=== PATIENT | female | born 1985 | race Two or more races ===

== ENCOUNTER 2025-03-21 17:03 | Emergency (ER) | payer MEDICAID, SELFPAY ==
[2025-03-21 17:15] VITALS: BP 114/75; PULSE 63; RESP 22; TEMP 36.5; O2SAT 99; BMI 29.6
--- NOTE | 2025-03-21 17:31 | XR_ITS ---
Examination: Abdomen sonogram, Limited Date and time of exam: March 21, 2025, 1828 hours INDICATIONS: Epigastric pain beginning 2 days ago Technique: Real-time lord scale transabdominal sonographic images of the upper abdomen obtained. Findings: Gallstones Gallbladder wall 0.4 cm no definite edema Common bile duct 0.2 cm Pancreatic head 2.6 cm Liver 14.7 cm no liver lesions Normal hepatopetal portal venous flow Patent IVC IMPRESSION: Cholelithiasis Consider HIDA scan or MRCP follow-up to exclude cholecystitis
--- NOTE | 2025-03-21 17:32 | PD.EDRME ---
Rapid Medical Screening Exam [facility] Arrival date/time: 03/21/25 17:03 40-year-old female with no known medical history presents to the emergency room with a chief complaint of right upper quadrant abdominal tenderness x 1 day. Patient has a history of gallstones. I have greeted and performed a focused initial assessment of this patient. A comprehensive ED assessment and evaluation of the patient, analysis of all test results, and completion of the medical decision making process will be conducted by additional ED providers. Chief Complaint: Abdominal Pain Vital signs: Vital Signs Temperature 97.7 F 03/21/25 17:15 Pulse Rate 63 03/21/25 17:15 Respiratory Rate 22 H 03/21/25 17:15 Blood Pressure 114/75 03/21/25 17:15 Pulse Oximetry (%) 99 03/21/25 17:15 Oxygen Delivery Method Room Air 03/21/25 17:15 Vital signs reviewed by provider: Yes Exam: Right upper quadrant abdominal tenderness with palpation. Positive Matute sign Clear bilateral lung sounds Clinical Impression: Cholelithiasis versus cholecystitis
[2025-03-21 18:02] LABS: Basophils # (Auto) 0.1 Thou/mm3 (0.0-0.2); Basophils % (Auto) 1 % (0-2.5); Eosinophils # (Auto) 0.2 Thou/mm3 (0.0-0.5); Eosinophils % (Auto) 2 % (0-10); Hematocrit 39.0 % (36.0-46.0); Hemoglobin 12.8 g/dL (12.0-16.0); Immature Granulocytes Auto 0.06 Thou/mm3 (0.00-0.00); Lymphocytes # (Auto) 2.5 Thou/mm3 (1.0-4.8); Lymphocytes % (Auto) 26 % (10-50); Mean Corpuscular HGB Conc 32.8 g/dl (31.0-37.0); Mean Corpuscular Hemoglobin 29.9 pg (25.0-35.0); Mean Corpuscular Volume 91 fL (80-100); Monocytes # (Auto) 0.7 Thou/mm3 (0.0-0.8); Monocytes % (Auto) 7 % (0-12); Neutrophils # (Auto) 6.0 Thou/mm3 (1.8-7.7); Neutrophils % (Auto) 64 % (37-80); Nucleated Red Blood Cell # 0.00 Thou/mm3 (0.00-0.00); Nucleated Red Blood Cell % 0 /100 WBC (0); Platelet Count 187 Thou/mm3 (140-440); RDW Standard Deviation 41.1 fL (36.4-46.3); Red Blood Count 4.28 Miln/mm3 (4.00-5.20); White Blood Count 9.4 Thou/mm3 (3.6-11.0)
[2025-03-21] MEDS: ONDANSETRON ODT 4 MG TABRAP PO (18:06)
[2025-03-21] MEDS: HYDROcodone/APAP 5/325 TABLET 1 TAB PO (18:06)
[2025-03-21 18:20] LABS: Alanine Aminotransferase 47 U/L (10-49); Albumin, Serum 4.1 gm/dL (3.5-5.0); Albumin/Globulin Ratio 1.4 (1.2-2.2); Alkaline Phosphatase 83 U/L (46-116); Anion Gap 8 (7-16); Aspartate Amino Transferase 69 U/L (0-34); BUN/Creatinine Ratio 14 Ratio (12-20); Bilirubin,Total 0.4 mg/dL (0.3-1.2); Blood Urea Nitrogen 10 mg/dL (9-23); Calcium 8.9 mg/dL (8.3-10.6); Calcium (Corrected) 8.9 mg/dL (8.5-10.1); Carbon Dioxide 27.5 mMol/L (20.0-31.0); Chloride 106 mMol/L (98-107); Creatinine (Component) 0.7 mg/dL (0.6-1.3); Estimated Creatinine Clearance 99.3 mL/min (>60); Globulin 3.0 gm/dL (2.3-3.5); Glucose 144 mg/dL (74-106); Lipase 65 U/L (12-53); Osmolality,Calculated 283 (275-295); Potassium 4.2 mMol/L (3.4-5.1); Sodium 141 mMol/L (136-145); Total Protein 7.1 gm/dL (5.7-8.2); eGFR > 60 See Note
[2025-03-21 18:25] LABS: Collection Type, Urine Clean Catch
[2025-03-21 18:32] LABS: Bilirubin,Urine Negative (Negative); Blood,Urine Negative (Negative); Clarity,Urine Clear (Clear/Hazy); Color,Urine Lt-Yellow (Lt Yel-Yel); Glucose, Urine Negative (Negative); Ketones,Urine Negative (Negative); Leukocyte Esterase,Urine Negative (Negative); Nitrite,Urine Negative (Negative); PH,Urine 7.5 (5.0-7.0); Protein,Urine Negative (Neg - Trace); RBC,Urine 1 /hpf (0-3); Specific Gravity,Urine 1.022 (1.001-1.035); Squamous Epithelial Cell,Urine 1 /hpf (0-5); Urobilinogen,Urine Negative mg/dL (0.0-1.0); WBC,Urine < 1 /hpf (0-5)
[2025-03-21 18:44] LABS: HCG Qualitative,Urine Negative
[2025-03-21 19:39] VITALS: BP 98/65; PULSE 52; RESP 16; TEMP 36.6; O2SAT 97
--- NOTE | 2025-03-21 19:51 | PD.EDABDPN ---
ED Abdominal Pain RME/HPI General Chief Complaint: Abdominal Pain Stated complaint: GALLBLADDER STONES Time seen by provider: 03/21/25 18:22 Arrival date/time: 03/21/25 17:03 40-year-old female patient with no past medical history except for gallstone, came in for evaluation regarding biliary colic. She been having biliary colic earlier this morning patient described the pain as crampy, severity moderate no fever no vomiting no other complaints noted. Patient was eating a lot last night. For Thanksgiving. Scheduled for appointment with general surgeon in few weeks. No fever noted RME / HPI RME / HPI narrative: 03/21/25 17:03 40-year-old female with no known medical history presents to the emergency room with a chief complaint of right upper quadrant abdominal tenderness x 1 day. Patient has a history of gallstones. I have greeted and performed a focused initial assessment of this patient. A comprehensive ED assessment and evaluation of the patient, analysis of all test results, and completion of the medical decision making process will be conducted by additional ED providers. Exam: Right upper quadrant abdominal tenderness with palpation. Positive Matute sign Clear bilateral lung sounds Impression: Cholelithiasis versus cholecystitis Related Data Previous Rx's ?Medication ?Instructions ?Recorded ibuprofen 800 mg tablet 800 mg PO TID PRN pain #30 tabs 03/02/18 Allergies Allergy/AdvReac Type Severity Reaction Status Date / Time No Known Allergies Allergy Verified 03/21/25 17:06 Review of Systems Review of Systems Narrative Review of Systems: Review of system reviewed and within normal limits except mentioned in HPI ED Exam Narrative Physical exam: VITAL SIGNS: Reviewed. GENERAL APPEARANCE: Alert and interactive, follows commands, no acute distress, HEAD AND FACE: Non-traumatic. ENT: PERRL, pink conjunctivitis, eyelid no trauma, Mucous membrane moist. NECK: Supple, nontender, no nuchal rigidity. CHEST: No tenderness, no crepitus, no paradoxical movement, no retractions. LUNGS: Clear, well ventilated, symmetric, no rales, no wheezing, no ronchi, no stridor, good breath sounds bilaterally. HEART: Regular rate, regular rhythm, no murmur, no gallops. ABDOMEN: Soft, positive bowel sounds, nondistended, no guarding, nontender, no rebound, no masses, RECTAL: Deferred. GENITAL: Deferred. NEUROLOGICAL: Gross motor function intact sensory function intact, Appropriate for age. MUSCULOSKELETAL: low back nontender, full range of motion. EXTREMITIES: Nontender, full range of motion. SKIN: Color pink, dry, no rash, no lacerations, no abrasions, no contusions. LYMPHATICS: Deferred. Course Quality Measures none Orders Category Date Time Status US gall bladder Stat Exams 03/21/25 17:31 Taken CBC Stat Lab 03/21/25 17:40 Completed CMP [Comprehensive Metabolic Panel] Stat Lab 03/21/25 17:40 Completed HCG Qualitative,Urine Stat Lab 03/21/25 18:01 Completed Lipase Stat Lab 03/21/25 17:40 Completed UA [Urinalysis] Stat Lab 03/21/25 18:01 Completed Urine Culture Stat Lab 03/21/25 18:01 Received HYDROcodone*/APAP 5/325 [[place] 5/325] Med 03/21/25 17:31 Discontinued 1 tab PO X1 ONE Ondansetron Odt [Zofran Odt] Med 03/21/25 17:31 Discontinued 4 mg PO X1 ONE Vital Signs Vital signs: Vital Signs Temperature 97.7 F 03/21/25 17:15 Pulse Rate 63 03/21/25 17:15 Respiratory Rate 22 H 03/21/25 17:15 Blood Pressure 114/75 03/21/25 17:15 Pulse Oximetry (%) 99 03/21/25 17:15 Oxygen Delivery Method Room Air 03/21/25 17:15 Abdominal Pain MDM MDM Narrative MDM Narrative:: 40-year-old female patient with no past medical history except for gallstone, came in for evaluation regarding biliary colic. She been having biliary colic earlier this morning patient described the pain as crampy, severity moderate no fever no vomiting no other complaints noted. Patient was eating a lot last night. For Thanksgiving. Scheduled for appointment with general surgeon in few weeks. No fever noted Laboratory workup did not show any sign of leukocytosis LFTs are normal. Ultrasound of gallbladder showed cholelithiasis with no sign of acute cholecystitis patient was given [place], with complete resolution of pain. Patient is stable for charged home advised her not to eat spicy food, greasy food, meat or fried foods. She is scheduled to see a surgeon in a few weeks. Patient data External records reviewed:: None Clinical information provided by:: none Social determinants that could affect healthcare access:: none Patient has the following chronic illnesses:: None How is presenting disease/condition affected by chronic disease/condition?: no chronic disease Evaluation data The following diagnostics were reviewed and interpreted by me:: lab results and radiology exam(s) Lab and/or radiology exams considered but not ordered:: None Interpretation Summary: See above Medications / Prescriptions Medications or Prescriptions considered but not ordered:: None Medication administrations:: Medication Administration History Discontinued Medications Hydrocodone Bitart/Acetaminophen (Hydrocodone/Apap 5/325 Tablet) 1 tab PO X1 ONE Stop: 03/21/25 17:32 Last Admin: 03/21/25 18:06 Dose: 1 tab Documented By: Ondansetron HCl (Ondansetron Odt 4 Mg Tabrap) 4 mg PO X1 ONE; Protocol Stop: 03/21/25 17:32 Last Admin: 03/21/25 18:06 Dose: 4 mg Documented By: Carla Yu Consultations Consultation(s) initiated? (list below): No Diagnosis Differential diagnosis abdominal pain: abdominal pain and constipation Most likely diagnosis given after review of the tests above:: Biliary colic, gallstone Admission Indicated Admission indicated?: not indicated Admission Request Was there a request for admission?: No Disposition Plan Disposition Plan: Discharge Discharge Attestation Discharge Attestation: The patient and all family members were given an opportunity to ask questions and understood the discharge instructions. Discharge instructions specifically effects, indications for sooner follow up or return to the emergency department, and the expected course of current diagnosis. Patient condition: Stable Discharge Plan Plan Patient Disposition: HOME (Self Care) Discharge Disposition comment: Stable Prescriptions/Referrals Prescriptions/Med Rec: No Action ibuprofen 800 mg tablet 800 mg PO TID PRN (Reason: pain) Qty: 30 0RF Referrals: No Primary/Family,Physician [Primary Care Provider] - In 1 week Problem List Clinical Impression: Biliary colic, Gallstone Patient/Caregiver Discharge Instructions Discharge Activity: activity as tolerated Education Materials: What Are Gallstones Additional Instructions: Thank you for the opportunity for serving you today. You are stable for discharged . You are advised to: Follow-up with your PCP in 1 to 2 days Return to ED for worsening of symptoms Increase oral fluids Take medication as prescribed last visit Follow-up with your scheduled appointment with a surgeon regarding your gallstone Please avoid eating fatty and greasy food., Avoid eating spicy food Print Language: Georgian Stand Alone Forms: Mindy Award Info., Patient Portal Info Letter PA/JOURNEYMAN PIPE FITTER Supervising Physician PA/JOURNEYMAN PIPE FITTER Supervising Physician: MD Cassandra
== END 2025-03-21 19:58 | disposition home or self-care (01) ==
PROVIDERS: Nurse Practitioner Family; Emergency Provider Emergency Medicine
DX: K80.70 Calculus of gallbladder and bile duct without cholecystitis without obstruction (principal)
CPT/HCPCS: 36415; 76705; 80053; 81001; 81025; 83690; 85025; 87086; 99283; Q0162; A9270

== ENCOUNTER 2025-04-19 22:20 | Inpatient (IN) | payer MEDICAID, SELFPAY ==
[2025-04-19 22:55] VITALS: BP 126/88; PULSE 63; RESP 16; TEMP 36.7; O2SAT 99
[2025-04-19 23:43] LABS: Basophils # (Auto) 0.1 Thou/mm3 (0.0-0.2); Basophils % (Auto) 1 % (0-2.5); Eosinophils # (Auto) 0.1 Thou/mm3 (0.0-0.5); Eosinophils % (Auto) 1 % (0-10); Hematocrit 40.7 % (36.0-46.0); Hemoglobin 13.5 g/dL (12.0-16.0); Immature Granulocytes Auto 0.12 Thou/mm3 (0.00-0.00); Lymphocytes # (Auto) 1.6 Thou/mm3 (1.0-4.8); Lymphocytes % (Auto) 14 % (10-50); Mean Corpuscular HGB Conc 33.2 g/dl (31.0-37.0); Mean Corpuscular Hemoglobin 29.6 pg (25.0-35.0); Mean Corpuscular Volume 89 fL (80-100); Monocytes # (Auto) 1.1 Thou/mm3 (0.0-0.8); Monocytes % (Auto) 9 % (0-12); Neutrophils # (Auto) 8.8 Thou/mm3 (1.8-7.7); Neutrophils % (Auto) 75 % (37-80); Nucleated Red Blood Cell # 0.00 Thou/mm3 (0.00-0.00); Nucleated Red Blood Cell % 0 /100 WBC (0); Platelet Count 217 Thou/mm3 (140-440); RDW Standard Deviation 41.1 fL (36.4-46.3); Red Blood Count 4.56 Miln/mm3 (4.00-5.20); White Blood Count 11.8 Thou/mm3 (3.6-11.0)
[2025-04-20] VITALS (8 sets, daily range): BP systolic 91–120; BP diastolic 62–82; PULSE 52–81; RESP 15–99; TEMP 36.5–36.9; O2SAT 96–100; BMI 34.9
--- NOTE | 2025-04-20 00:11 | XR_ITS ---
Examination: Abdomen sonogram, Limited Date and time of exam: April 20, 2025, 0021 hours INDICATIONS: Right upper abdominal pain with vomiting beginning 2 days ago. Technique: Real-time lord scale transabdominal sonographic images of the upper abdomen obtained. Findings: Small gallstone Gallbladder wall 0.3 cm no edema Common bile duct 0.4 cm Pancreatic head 2.6 cm Liver 13.7 cm no liver lesions Normal hepatopetal portal venous flow Patent IVC IMPRESSION: Cholelithiasis, negative for cholecystitis
[2025-04-20 00:14] LABS: Albumin, Serum 3.9 gm/dL (3.5-5.0); Albumin/Globulin Ratio 1.1 (1.2-2.2); Alkaline Phosphatase 120 U/L (46-116); Anion Gap 7 (7-16); Aspartate Amino Transferase 569 U/L (0-34); BUN/Creatinine Ratio 11 Ratio (12-20); Bilirubin,Total 2.1 mg/dL (0.3-1.2); Blood Urea Nitrogen 9 mg/dL (9-23); Calcium 9.0 mg/dL (8.3-10.6); Calcium (Corrected) 9.1 mg/dL (8.5-10.1); Carbon Dioxide 27.6 mMol/L (20.0-31.0); Chloride 104 mMol/L (98-107); Creatinine (Component) 0.8 mg/dL (0.6-1.3); Globulin 3.6 gm/dL (2.3-3.5); Glucose 102 mg/dL (74-106); Osmolality,Calculated 276 (275-295); Potassium 3.8 mMol/L (3.4-5.1); Sodium 139 mMol/L (136-145); Total Protein 7.5 gm/dL (5.7-8.2); eGFR > 60 See Note
[2025-04-20 00:18] LABS: Collection Type, Urine Clean Catch
[2025-04-20 00:27] LABS: Bilirubin,Urine Negative (Negative); Blood,Urine Negative (Negative); Calcium Oxalate Crystals,Urine 1+; Clarity,Urine Clear (Clear/Hazy); Color,Urine Yellow (Lt Yel-Yel); Glucose, Urine Negative (Negative); Ketones,Urine Negative (Negative); Leukocyte Esterase,Urine Negative (Negative); Nitrite,Urine Negative (Negative); PH,Urine 6.0 (5.0-7.0); Protein,Urine Negative (Neg - Trace); RBC,Urine 2 /hpf (0-3); Specific Gravity,Urine 1.011 (1.001-1.035); Squamous Epithelial Cell,Urine 1 /hpf (0-5); Urobilinogen,Urine Negative mg/dL (0.0-1.0); WBC,Urine 3 /hpf (0-5)
[2025-04-20 00:29] LABS: HCG Qualitative,Urine Negative
[2025-04-20 00:40] LABS: Alanine Aminotransferase 871 U/L (10-49)
[2025-04-20 00:54] LABS: Lipase > 3500 U/L (12-53)
--- NOTE | 2025-04-20 01:28 | PRELIM_ITS ---
Right upper quadrant abdominal ultrasound with Doppler and wave Doppler spectral analysis. April 20, 2025 0021 hours Clinical history: abdomen pain Technique: Grayscale and color flow images of the right upper quadrant are provided. Hepatic and portal veins were also imaged with color flow images. Comparison: None available at the time of this report. Findings: The liver is normal in echogenicity. No intrahepatic biliary ductal dilatation. Gallstones. No gallbladder wall thickening or pericholecystic fluid is demonstrated. The common bile duct is normal in caliber at 4.2 mm. The pancreas is unremarkable to the extent visualized. The imaged portions of the right kidney is within normal limits. The portal vein is patent with hepatopetal flow and normal wave Doppler spectral analysis. The IVC is patent with normal wave Doppler spectral analysis. The hepatic veins are patent. Impression: Gallstones without evidence of acute cholecystitis. If the clinical suspicion for acute cholecystitis is still high consider correlation with HIDA scan. Report Electronically Signed By: Igor Mcmahon 04/20/2025 1:27:51 AM [EST]
--- NOTE | 2025-04-20 01:53 | XR_ITS ---
Examination: CT abdomen with intravenous contrast CT pelvis with intravenous contrast 2-D coronal reconstructions 2-D sagittal reconstructions Date and time of exam: April 20, 2025, 0237 hours INDICATIONS: Onset abdominal pain beginning 2 days ago. CTDI: vol (mGy) 8.34 DLP: (mGycm) 457 Technique: Multiple axial sections of the abdomen and pelvis have been obtained. 64 slice high-resolution scanner used. 3 mm axial sections have been obtained, post intravenous injection 60 cc [id number] 2-D sagittal, coronal reconstructions obtained. Low dose protocols were performed. One or more of the following dose reduction techniques were used; automated exposure control, adjustment of the mA and/or KV according to patient size, use of iterative reconstruction technique. Findings: No visualized liver or splenic lesion Diffusely enlarged pancreas with surrounding edema Gallbladder wall thickening Moderate renal scarring No bowel obstruction Normal appendix No diverticulitis Intrauterine device satisfactory position 3.5 cm right ovarian cyst Osseous structures intact IMPRESSION: Acute pancreatitis Acute cholecystitis Recommend pelvic sonography to assess 3.5 cm right ovarian cyst
--- NOTE | 2025-04-20 03:49 | PD.EDRME ---
Rapid Medical Screening Exam RME Arrival date/time: 04/19/25 22:20 This is a case of 40-year-old female who came into the emergency room due to both upper abdominal pain with nausea vomiting history of cholelithiasis worsening of the symptoms this patient decided to sought consult here in the emergency room Chief Complaint: Abdominal Pain Time Seen by Provider: 04/19/25 23:22 Vital signs: Vital Signs Temperature 98.1 F 04/19/25 22:55 Pulse Rate 63 04/19/25 22:55 Respiratory Rate 16 04/19/25 22:55 Blood Pressure 126/88 H 04/19/25 22:55 Pulse Oximetry (%) 99 04/19/25 22:55 Oxygen Delivery Method Room Air 04/19/25 22:55 Exam: Moderate tenderness right upper quadrant no guarding no rebound no rigidity Clinical Impression: Abdominal pain
--- NOTE | 2025-04-20 04:11 | PRELIM_ITS ---
CT abdomen and pelvis with intravenous contrast (axial images with coronal and sagittal reconstructions) Clinical history: Abdominal pain Findings: The lung bases are clear. The liver, spleen, adrenal glands and kidneys are unremarkable. There is gallbladder wall thickening with mild adjacent fat stranding. Prominent fat stranding around the pancreas. No evidence of pancreatic necrosis. No peripancreatic fluid collection. The portal mesenteric and splenic veins are patent. Bowel caliber is normal. The appendix is normal, best seen on image 129. There is an intrauterine contraceptive device in normal position in the uterine fundus. A 3.5 cm right adnexal follicle. The urinary bladder is normal. The abdominal wall is unremarkable. No acute osseous process. No free intraperitoneal air or fluid. Impression: Acute pancreatitis. Gallbladder inflammation may be secondary to adjacent pancreatitis. Cannot exclude cholecystitis. Report Electronically Signed By: Timoteo Choe 04/20/2025 4:11:35 AM [EST]
--- NOTE | 2025-04-20 04:31 | PD.EDABDPN ---
ED Abdominal Pain RME/HPI General Chief Complaint: Abdominal Pain Stated complaint: ABD PAIN Time seen by provider: 04/19/25 23:22 Arrival date/time: 04/19/25 22:20 RME / HPI RME / HPI narrative: 04/19/25 22:20 This is a case of 40-year-old female who came into the emergency room due to both upper abdominal pain with nausea vomiting history of cholelithiasis worsening of the symptoms this patient decided to sought consult here in the emergency room DR. BOWER MAIN ED EVALUATION: Patient with previously diagnosed gallstones pending cholecystectomy now presenting with progressively worsening epigastric/RUQ abdominal pain with associated several bouts of nausea and vomiting, although no fever, but reports chills. No radiation to the back, denies diarrhea or dysuria. PMH: Cholelithiasis, No DM, ASthma, or HTN PSH: Unremarkable Allergies: NKDA Social: Nondrinker, Nonsmoker Exam: Moderate tenderness right upper quadrant no guarding no rebound no rigidity Impression: Abdominal pain Related Data Previous Rx's ?Medication ?Instructions ?Recorded ibuprofen 800 mg tablet 800 mg PO TID PRN pain #30 tabs 03/02/18 Allergies Allergy/AdvReac Type Severity Reaction Status Date / Time No Known Allergies Allergy Verified 04/19/25 22:20 Review of Systems Review of Systems Systems Reviewed: All systems reviewed, normal except as documented ED Exam Narrative Physical exam: GEN. APPEARANCE: The patient is alert awake oriented X-3 under mild distress c/o epigastric abdominal pain Patient has good eye contact. Patient is cooperative. VITALS: All vitals were reviewed and the pulse ox is 100%, which is normal according to my interpretation HEENT: Normocephalic, atraumatic and nontender. Pupils are equal and reactive. Oral mucosa is moist. NECK: Supple, nontender, no meningismus, no JVD. There is no thyromegaly and no lymphadenopathy. CHEST: Nontender on palpation no deformity and no crepitus. CARDIOVASCULAR: Heart regular rhythm, no murmur or gallop rub or extra beats. LUNGS: Clear to auscultation bilaterally with symmetrical chest rise. No laboring tachypnea or wheezing. No intercostal subcostal retraction. No rales and no rhonchi. ABDOMEN: Soft, flat, moderate TTP epigastrium/RUQ, slight guarding noted, no rebound tenderness. There are no abnormal masses palpated. No pulsatile masses or bruits. Active and normal bowel sounds. EXTREMITIES: Normal inspection and palpation. No edema. No cyanosis. Patient is able to move all 4 extremities well SKIN: Warm and dry, no rashes noted. MUSCULOSKELETAL: No lumbar or midline bony tenderness. There is no CVA tenderness. No paraspinal muscle spasm or tenderness. NEURO: Cranial nerves II through XII grossly intact. There are no focal neurologic deficits noted. GCS is 15 PSYCHIATRIC: Patient is in normal mood and affect, cooperative. LYMPHATICS: No major lymphadenopathy noted. Course Quality Measures none Orders Category Date Time Status CT Screening NOW Care 04/20/25 01:[address] abdomen pelvis w con Stat Exams 04/20/25 01:53 Completed US gall bladder Stat Exams 04/20/25 00:11 Taken CBC Stat Lab 04/19/25 23:31 Completed Comprehensive Metabolic Panel Stat Lab 04/19/25 23:31 Completed HCG Qualitative,Urine Stat Lab 04/19/25 23:24 Completed Lipase Stat Lab 04/19/25 23:31 Completed Urinalysis Stat Lab 04/19/25 23:24 Completed HYDROmorphone INJ [Dilaudid Inj] Med 04/20/25 04:34 Discontinued 1 mg IVP X1 ONE Prochlorperazine Inj [Compazine Inj] Med 04/20/25 04:34 Discontinued 2.5 mg IV X1 ONE Vital Signs Vital signs: Vital Signs Temperature 98.1 F 04/19/25 22:55 Pulse Rate 63 04/19/25 22:55 Respiratory Rate 16 04/19/25 22:55 Blood Pressure 126/88 H 04/19/25 22:55 Pulse Oximetry (%) 99 04/19/25 22:55 Oxygen Delivery Method Room Air 04/19/25 22:55 Abdominal Pain MDM MDM Narrative MDM Narrative:: Scribe Attestation: Yoli Menchaca, ludivina scribing for and in the presence of Dr. Bower. Provider Notation: Although this document has been carefully reviewed, there may still be some phonetic and other typographical errors. These errors are purely grammatical due to imperfections in the software program and should not be construed in any way to compromise the substance of the patient's medical care during this visit. Patient with previously diagnosed gallstones pending cholecystectomy now presenting with progressively worsening epigastric/RUQ abdominal pain with associated several bouts of nausea and vomiting, although no fever, but reports chills. No radiation to the back, denies diarrhea or dysuria. Please see PE findings. Laboratory markers, including CBC and serum chemistries, demonstrated marginally elevated WBC of 11.8, no anemia or thrombocytopenia. No left shift or bandemia. Serum chemistries notable for increased T. Bilirubin to 2.1, elevated transaminases, and alkaline phosphatase, of note lipase greater than 3,500. Patient was hydrated with normal saline and treated with low-dose narcotic analgesics/anti-emetics with mild to moderate relief. Patient remained hemodynamically stable without underlying signs of sepsis. Patient referred for gallbladder US and abdomen/pelvis CT. US demonstrated gall stones without evidence of acute cholecystitis, CBD of normal caliber. CT also obtained, demonstrated evidence of acute pancreatitis and potential cholecystitis. HIDA scan currently recommended. Doubt common bile duct obstruction. Will contact hospitalist for consideration for admission with planned HIDA in the AM. Final diagnosis is consistent with acute gallstone pancreatitis. Patient data External records reviewed:: [facility] previous records (Reviewed prior ED records from 03/21/25. Patient was seen for Biliary colic.) Clinical information provided by:: patient Social determinants that could affect healthcare access:: none Patient has the following chronic illnesses:: None reported How is presenting disease/condition affected by chronic disease/condition?: no chronic disease Evaluation data The following diagnostics were reviewed and interpreted by me:: lab results and radiology exam(s) Lab and/or radiology exams considered but not ordered:: None Interpretation Summary: RADIOLOGY Gall Bladder US: Findings: The liver is normal in echogenicity. No intrahepatic biliary ductal dilatation. Gallstones. No gallbladder wall thickening or pericholecystic fluid is demonstrated. The common bile duct is normal in caliber at 4.2 mm. The pancreas is unremarkable to the extent visualized. The imaged portions of the right kidney is within normal limits. The portal vein is patent with hepatopetal flow and normal wave Doppler spectral analysis. The IVC is patent with normal wave Doppler spectral analysis. The hepatic veins are patent. Impression: Gallstones without evidence of acute cholecystitis. If the clinical suspicion for acute cholecystitis is still high consider correlation with HIDA scan. Abdomen/Pelvis CT: Findings: The lung bases are clear. The liver, spleen, adrenal glands and kidneys are unremarkable. There is gallbladder wall thickening with mild adjacent fat stranding. Prominent fat stranding around the pancreas. No evidence of pancreatic necrosis. No peripancreatic fluid collection. The portal mesenteric and splenic veins are patent. Bowel caliber is normal. The appendix is normal, best seen on image 129. There is an intrauterine contraceptive device in normal position in the uterine fundus. A 3.5 cm right adnexal follicle. The urinary bladder is normal. The abdominal wall is unremarkable. No acute osseous process. No free intraperitoneal air or fluid. Impression: Acute pancreatitis. Gallbladder inflammation may be secondary to adjacent pancreatitis. Cannot exclude cholecystitis. Medications / Prescriptions Medications or Prescriptions considered but not ordered:: None Medication administrations:: Medication Administration History Discontinued Medications Hydromorphone HCl (Hydromorphone Inj 2 Mg/Ml Vial) 1 mg IVP X1 ONE Stop: 04/20/25 04:35 Last Admin: 04/20/25 04:42 Dose: 1 mg Documented By: LEE Prochlorperazine Edisylate (Prochlorperazine Inj 5 Mg/Ml Vial 2 Ml) 2.5 mg IV X1 ONE; Protocol Stop: 04/20/25 04:35 Last Admin: 04/20/25 04:42 Dose: 2.5 mg Documented By: LEE See above if any Consultations Consultation(s) initiated? (list below): Yes Consultation #1 (Physician, Specialty, Details): Discussed with Dr. Moura for admission. Reviewed the patient?s HPI, PMHx, lab and/or radiology results. Discussed treatment plan. Will consult an admission to the hospitalist. Time: 05:23 Consultation #2 (Physician, Specialty, Details): Dr. Barry made aware of the patient?s HPI, PMHx, lab and/or radiology results. Discussed treatment plan. Willing t consult and recommends starting ABX. Dr. Barry will see patient alongside hospitalist team. Time: 06:28 Diagnosis Differential diagnosis abdominal pain: abdominal pain, calculus of kidney, pancreatitis and other (Cholelithiasis, Cholecystitis) Most likely diagnosis given after review of the tests above:: Acute gallstone pancreatitis Admission Indicated Admission indicated?: indicated Explain why admission is indicated or not indicated:: Acute gallstone pancreatitis Admission Request Was there a request for admission?: Yes Admission Attestation Admission request attestation: Discussed case with [] from Hospitalist service regarding admission. Discussed patients ED course, exam findings, labs, and radiology results. The Hospitalist [agrees,declines] to accept the patient for admission. Disposition Plan Disposition Plan: Admit Discharge Plan Plan Patient Disposition: Admit Acute Care w/in Hospital Prescriptions/Referrals Prescriptions/Med Rec: No Action ibuprofen 800 mg tablet 800 mg PO TID PRN (Reason: pain) Qty: 30 0RF Referrals: Rober Mendoza MD [Primary Care Provider, Family Practice] - In 1 week Problem List Clinical Impression: Acute gallstone pancreatitis Patient/Caregiver Discharge Instructions Print Language: Cambodian Stand Alone Forms: Mindy Award Info., Patient Portal Info Letter
[2025-04-20] MEDS: PROCHLORPERAZINE INJ 5 MG/ML VIAL 2 ML 2.5 MG IV (04:42)
[2025-04-20] MEDS: HYDROmorphone INJ 2 MG/ML VIAL 1 MG IVP (04:42)
[2025-04-20] MEDS: cefTRIAXone/D5w 1gm IV premix 1 GM/50 ML BAG IV (06:47)
[2025-04-20] MEDS: RINGERS LACTATED 1000 ML 1,000 ML 120 ML IV ×3 (09:51→23:31)
--- NOTE | 2025-04-20 11:05 | PD.SURCONS ---
HPI Consult details Consult date: 04/20/25 Reason for consultation narrative: Gallstone pancreatitis History of present illness: 40 years old female without significant past medical history presented to the emergency department with worsening abdominal pain. She has had epigastric and right upper quadrant abdominal pain that has been getting progressively worse over the past 2 days. She has had nausea and vomiting, but denies fever, chills, jaundice or discoloration in urine or stool. She denies having similar symptoms in the past. Abdominal ultrasound and CT scan revealed gallstones with acute pancreatitis. Review of Systems Constitutional Constitutional: Denies chills and Denies fever(s) Cardiovascular Cardiovascular: Denies chest pain Respiratory Respiratory: Denies cough Gastrointestinal Gastrointestinal: Reports abdominal pain, Reports nausea and Reports vomiting Genitourinary Genitourinary: Denies difficulty voiding Hematologic/Lymphatic Hematologic/Lymphatic: Denies easy bleeding and Denies easy bruising Past Medical History Surgical History OTHER SURGICAL HX: No surgeries in the past Social History SMOKING STATUS: Never smoker SUBSTANCE USE: does not use ALCOHOL: Never Meds Home Medications and Allergies Allergies Allergy/AdvReac Type Severity Reaction Status Date / Time No Known Allergies Allergy Verified 04/19/25 22:20 Exam Vital Signs Temp Pulse Resp BP Pulse Ox O2 Del Method 97.9 F 57 L 17 97/63 100 Room Air 04/20/25 10:09 04/20/25 10:09 04/20/25 10:09 04/20/25 10:09 04/20/25 10:09 04/20/25 10:09 Constitutional Constitutional: no acute distress Routine Abdominal Exam Comments: Abdomen is soft and nondistended. She has epigastric and right upper quadrant tenderness to palpation with guarding, no rebound tenderness or peritonitis at this time Results Results: Laboratory Laboratory results: results reviewed Results: Imaging CT scan - abdomen: report reviewed and image reviewed CT scan - pelvis: report reviewed and image reviewed US - abdomen: report reviewed and image reviewed Assessment & Plan Problem List (1) Biliary acute pancreatitis without necrosis or infection: Status: Acute Plan Keep n.p.o. with IV fluids. When pancreatitis improves we will plan for laparoscopic possible open cholecystectomy with cholangiogram
--- NOTE | 2025-04-20 11:53 | ESHP_ITS ---
<Statement entered by Luis Mohan MD - 04/20/25 14:48> 40-year-old female with history of cholelithiasis who presents with severe abdominal pain that started on 04/18 after large meal. States pain is sharp, in the epigastrium, and radiates outwards. She had a gallbladder ultrasound on 03/13/2025 that showed cholelithiasis. Repeat gallbladder ultrasound again showed cholelithiasis but no signs of cholecystitis and CBD was nonenlarged. CT A/P showed acute pancreatitis and acute cholecystitis. GI was spoken to and agreed that patient should be admitted for further management and no concerns for choledocholithiasis/cholangitis. General surgery also consulted and recommended to keep patient n.p.o. with IV fluids and when pancreas improves will plan for laparoscopic/possible open cholecystectomy with cholangiogram. Initial vitals were stable. CBC showed mild leukocytosis at 11.8. CHEM panel showed T. bili of 2.1, alk phos of 120, AST 570, ALT 870, lipase >3500. Started on aggressive IVF at 120 cc/h, pain control with morphine. Will continue to monitor. ----- Note reviewed and agree with care plan as documented. Please refer to the note below for further details. Plan discussed with attending physician Dr. Randee Mohan MD PGY-2 Internal Medicine Documentation for date of: 04/20/25 HPI History of Present Illness Chief complaint: Gallstone Pancreatitis History of present illness: Patient is a 40 year old greek speaking female with pmhx of cholelithiasis who presented to the ED at [facility] after having severe abdominal pain. Patient states the pain started 04/18 at dinner after she was eating a meal consisting of fatty meat. States since then she has felt sharp, pricking like pain frequently in the epigastrium that radiates outwards laterally. Patient states she has been to the hospital and clinic a few times for gallstones, but never pancreatitis. Patient endorses chills and difficulty breathing due to abdominal pain on respirations. Patient denies fever, weight loss, chest pain, palpitations, dysuria. Patient recently seen in ED for biliary colic ~ 1 month ago. Past Medical History: above Family History: grandpa had gallstones Surgical History: none noted Social History: Denies history of smoking, occasional alcohol use denies recreational drug use Current Medications: (Source: ) Allergies: No known drug allergies ED Course: -Initial vitals were BP 126/88, Pulse 63, RR 16, temp 98.1, o2 sat 99 on room air -Labs significant for WBC 11.8, T-Bili 2.1, AST 569, ALT 871, Alk phos 120, Lipase >3500; UA 1+ calcium oxalate crystal -Imaging included GB US showing cholelithiasis, negative for cholecystitis, CBD wnl; CT AP showing acute pancreatitis, acute cholecystitis, 3.5 cm right ovarian cyst. -In the ED, patient was given -Patient was admitted for Review of Systems Review of systems otherwise negative except what is mentioned above. Exam Vital Signs Temp Pulse Resp BP Pulse Ox O2 Del Method 97.9 F 57 L 17 97/63 100 Room Air 04/20/25 10:09 04/20/25 10:09 04/20/25 10:04/20/25 10:04/20/25 10:04/20/25 10:09 Narrative Exam General: No acute distress; A&Ox3 Skin: Warm, dry, intact, no obvious rash. HENT: NCAT, EOMI/PERRL, not icteric. External ears normal. No rhinorrhea. Moist mucous membranes Cardiovascular: Regular rate and rhythm, no murmur, +S1/S2. Respiratory: Lungs CTAB GI: Soft, epigastric/RUQ tenderness and guarding, no distension. No rebound tenderness. : No suprapubic tenderness. No flank tenderness bilaterally. Extremities: no edema, no cyanosis, no clubbing. Extremity pulses present Neuro: Grossly nonfocal. Moving all 4 extremities. CN not formally tested but appear grossly intact. Psychiatric: Cooperative, appropriate affect. Results: Labs 04/19/25 23:31 04/19/25 23:31 Labs: Short CBC 04/19/25 Range/Units 23:31 WBC 11.8 H (3.6-11.0) Thou/mm3 Hgb 13.5 (12.0-16.0) g/dL Hct 40.7 (36.0-46.0) % Plt Count 217 D (140-440) Thou/mm3 BMP 04/19/25 23:31 Sodium 139 Potassium 3.8 Chloride 104 Carbon Dioxide 27.6 BUN 9 Creatinine 0.8 Glucose 102 Calcium 9.0 Liver Function 04/19/25 Range/Units 23:31 Total Bilirubin 2.1 H (0.3-1.2) mg/dL AST 569 H* (0-34) U/L ALT 871 H* (10-49) U/L Alkaline Phosphatase 120 H (46-116) U/L Albumin 3.9 (3.5-5.0) gm/dL Urine 04/19/25 Range/Units 00:00 Urine Color Yellow (Lt Yel-Yel) Urine Clarity Clear (Clear/Hazy) Urine pH 6.0 (5.0-7.0) Ur Specific [place] 1.011 (1.001-1.035) Urine Protein Negative (Neg - Trace) Urine Glucose (UA) Negative (Negative) Quality Measures Quality Measures VTE prophylaxis Medications Home Medications and Allergies Home Medications ?Medication ?Instructions ?Recorded ?Confirmed ?Type ondansetron HCl 4 mg tablet 4 mg PO Q8H PRN nausea and vomiting 04/20/25 04/20/25 History Allergies Allergy/AdvReac Type Severity Reaction Status Date / Time No Known Allergies Allergy Verified 04/19/25 22:20 Visit Medications Heparin Sodium (Porcine) (Heparin Sod Inj 5000 Unit/Ml Vial) 5,000 unit SC BID [facility], [facility]1983 Stop: 05/04/25 20:59 Lactated Ringer's (Lactated Ringers) 1,000 mls @ 120 mls/hr IV .Q8H20M [facility], [facility]1983 Stop: 05/20/25 09:21 Last Admin: 04/20/25 09:51 Dose: 120 mls/hr Acetaminophen (Ofirmev Inj) 1,000 mg in 100 mls @ 250 mls/hr IV Q6HR PRN PRN Reason: abdominal pain 1-3 Stop: 04/21/25 00:23 Morphine Sulfate (Morphine Sulf Inj 4 Mg/Ml Vial) 2 mg IVP Q2H PRN PRN Reason: PAIN SCALE 7-10 (Severe Stop: 04/25/25 09:11 Morphine Sulfate (Morphine Sulf Inj 4 Mg/Ml Vial) 1 mg IVP Q4HR PRN PRN Reason: pain 4-6 Stop: 04/25/25 09:31 Ondansetron HCl (Ondansetron Inj 2 Mg/Ml Inj 2 Ml) 4 mg IVP Q6H PRN; Protocol PRN Reason: NAUSEA OR VOMITING Stop: 05/20/25 09:11 Discontinued Medications Acetaminophen (Acetaminophen 325 Mg Tablet) 650 mg PO Q6H PRN PRN Reason: Fever >100.5 or pain 1-3 Stop: 05/20/25 09:11 Hydromorphone HCl (Hydromorphone Inj 2 Mg/Ml Vial) 1 mg IVP X1 ONE Stop: 04/20/25 04:35 Last Admin: 04/20/25 04:42 Dose: 1 mg Ceftriaxone Sodium/Dextrose (Rocephin/D5w 1gm Iv Premix) 1 gm in 50 mls @ 100 mls/hr IV X1 ONE Stop: 04/20/25 07:02 Last Infusion: 04/20/25 07:17 Dose: Infused Oxycodone/Acetaminophen (Oxycodone/Apap 5/325 Tablet) 1 tab PO Q6H PRN PRN Reason: PAIN SCALE 4-6 (Moderate Stop: 04/25/25 09:11 Prochlorperazine Edisylate (Prochlorperazine Inj 5 Mg/Ml Vial 2 Ml) 2.5 mg IV X1 ONE; Protocol Stop: 04/20/25 04:35 Last Admin: 04/20/25 04:42 Dose: 2.5 mg Assessment & Plan Plan Patient is a 40 year old female with pmhx of cholelithiasis who presented to the ED at [facility] after having severe abdominal pain. Admitted for gallstone pancreatitis. #Gallstone pancreatitis #hx cholelithiasis #leukocytosis likely secondary to above #transaminitis likely secondary to above # Bilirubinemia likely secondary to possible obstruction Patient has hx of cholelithiasis, was seen 1 month ago for biliary colic WBC 11.8, T-Bili 2.1, AST 569, ALT 871, Alk phos 120, Lipase >3500; afebrile GB US showing cholelithiasis, negative for cholecystitis, CBD wnl CT AP showing acute pancreatitis, acute cholecystitis In ED, was given ceftriaxone 1 gm x1, dilaudid 1 mg iv x1, prochlorperazine 2.5 mg x1 Plan -LR IV fluids @120mls/hr -NPO -Surgery consulted, appreciate recs -plan for cholecystectomy when pancreatitis improves -IV morphine, tylenol prn pain -zofran prn -protonix IV BID #3.5 cm right ovarian cyst no pelvic pain or masses noted on exam -follow up outpatient with pcp Hospital Management: Disposition: med tele Diet: NPO GI Prophylaxis: protonix iv bid Bowel Prophylaxis: none DVT Prophylaxis: heparin CODE STATUS: full Patient plan of care was discussed with the attending physician, Dr. Jeff & senior resident Dr. Kimberlee Thomas MD PGY-1 Attending Provider Attestation/Addendum I or my resident physicians have discussed care with the ED physician and I have made the decision to admit. I have discussed and was present for the essential components of the history, physical examination, diagnosis, and treatment plan with the resident. I agree with the patient's care as documented by the resident and amended herein by me. Per Jeff DO. Although this document has been carefully reviewed, there may still be some phonetic and other typographical errors. These errors are purely grammatical due to imperfections in the software program and should not be construed in any way to compromise the substance of the patient's medical care during this visit.
[2025-04-20] MEDS: MORPHINE SULF INJ 4 MG/ML VIAL 2 MG IVP (15:45)
[2025-04-20] MEDS: HEPARIN SOD INJ 5000 UNIT/ML VIAL SC (20:07)
[2025-04-21] VITALS (17 sets, daily range): BP systolic 98–136; BP diastolic 59–88; PULSE 52–78; RESP 13–98; TEMP 36.1–36.7; O2SAT 96–100
[2025-04-21 06:15] LABS: Basophils # (Auto) 0.0 Thou/mm3 (0.0-0.2); Basophils % (Auto) 1 % (0-2.5); Eosinophils # (Auto) 0.1 Thou/mm3 (0.0-0.5); Eosinophils % (Auto) 1 % (0-10); Hematocrit 36.0 % (36.0-46.0); Hemoglobin 12.2 g/dL (12.0-16.0); Immature Granulocytes Auto 0.07 Thou/mm3 (0.00-0.00); Lymphocytes # (Auto) 1.8 Thou/mm3 (1.0-4.8); Lymphocytes % (Auto) 21 % (10-50); Mean Corpuscular HGB Conc 33.9 g/dl (31.0-37.0); Mean Corpuscular Hemoglobin 30.3 pg (25.0-35.0); Mean Corpuscular Volume 89 fL (80-100); Monocytes # (Auto) 0.9 Thou/mm3 (0.0-0.8); Monocytes % (Auto) 10 % (0-12); Neutrophils # (Auto) 5.8 Thou/mm3 (1.8-7.7); Neutrophils % (Auto) 66 % (37-80); Nucleated Red Blood Cell # 0.00 Thou/mm3 (0.00-0.00); Nucleated Red Blood Cell % 0 /100 WBC (0); Platelet Count 201 Thou/mm3 (140-440); RDW Standard Deviation 41.0 fL (36.4-46.3); Red Blood Count 4.03 Miln/mm3 (4.00-5.20); White Blood Count 8.7 Thou/mm3 (3.6-11.0)
[2025-04-21 06:44] LABS: Alanine Aminotransferase 438 U/L (10-49); Albumin, Serum 3.6 gm/dL (3.5-5.0); Albumin/Globulin Ratio 1.2 (1.2-2.2); Alkaline Phosphatase 116 U/L (46-116); Anion Gap 9 (7-16); Aspartate Amino Transferase 136 U/L (0-34); BUN/Creatinine Ratio 14 Ratio (12-20); Bilirubin,Total 1.1 mg/dL (0.3-1.2); Blood Urea Nitrogen 10 mg/dL (9-23); Calcium 8.6 mg/dL (8.3-10.6); Calcium (Corrected) 8.9 mg/dL (8.5-10.1); Carbon Dioxide 27.5 mMol/L (20.0-31.0); Cardiac Risk Estimate 5.2 RATIO (3.7-5.6); Chloride 104 mMol/L (98-107); Cholesterol 145 mg/dL (132-200); Creatinine (Component) 0.7 mg/dL (0.6-1.3); Estimated Creatinine Clearance 95.6 mL/min (>60); Globulin 3.0 gm/dL (2.3-3.5); Glucose 83 mg/dL (74-106); HDL Cholesterol 28 mg/dL (40-60); LDL Cholesterol,Calculated 92 mg/dL (0-130); Magnesium 1.6 mg/dL (1.6-2.6); Osmolality,Calculated 277 (275-295); Phosphorous 3.7 mg/dL (2.4-5.1); Potassium 3.3 mMol/L (3.4-5.1); Sodium 140 mMol/L (136-145); Total Protein 6.6 gm/dL (5.7-8.2); Triglycerides 123 mg/dL (30-150); eGFR > 60 See Note
[2025-04-21 08:06] LABS: Lipase 135 U/L (12-53)
[2025-04-21] MEDS: Magnesium Sulfate 2 GM Ivpb 2 GM/50 ML BAG IV (08:42)
[2025-04-21] MEDS: POTASSIUM CHL 10 mEq IVPB 10 MEQ/100 ML BAG 100 MEQ IV ×2 (08:42→09:46)
--- NOTE | 2025-04-21 09:21 | ESPR_ITS ---
<Statement entered by Lidia Zaldivar MD - 04/21/25 16:46> Patient is seen at bedside, reports improvement in abdominal pain. Later in the afternoon patient underwent laparoscopic cholecystectomy without any complications. Will continue to monitor today and wait for clearance from surgery for discharge. Vitals are stable, labs are reviewed and electrolytes are repleted. Patient was seen and examined by me personally. I have directly supervised and reviewed documentation by the team resident and agree with its findings. ------- Plan of care was discussed with the attending, Dr. Randee Zaldivar, PGY-2 Documentation for date of: 04/21/25 Subjective Subjective Interval history: No acute events overnight. Patient states she still has some minor abdominal pain. Patient's lipase decreased from >3600 to 135 along with great improvements in total bilirubin and ast/alt. Patient had potassium and magnesium repleted today. Planning to follow up surgery for when patient is ready for cholecystectomy. Exam Vital Signs Temp Pulse Resp BP Pulse Ox O2 Del Method 98.0 F 68 17 100/71 98 Room Air 04/21/25 08:00 04/21/25 08:00 04/21/25 08:00 04/21/25 08:00 04/21/25 08:00 04/21/25 08:00 Narrative Exam General: No acute distress; A&Ox3 Skin: Warm, dry, intact, no obvious rash. HENT: NCAT, EOMI/PERRL, not icteric. External ears normal. No rhinorrhea. Moist mucous membranes Cardiovascular: Regular rate and rhythm, no murmur, +S1/S2. Respiratory: Lungs CTAB GI: Soft, epigastric/RUQ tenderness and guarding, no distension. No rebound tenderness. : No suprapubic tenderness. No flank tenderness bilaterally. Extremities: no edema, no cyanosis, no clubbing. Extremity pulses present Neuro: Grossly nonfocal. Moving all 4 extremities. CN not formally tested but appear grossly intact. Psychiatric: Cooperative, appropriate affect. Objective Labs 04/21/25 04:45 04/21/25 04:45 Labs: Laboratory Results - last 24 hr 04/21/25 04:45 WBC 8.7 RBC 4.03 Hgb 12.2 Hct 36.0 MCV 89 MCH 30.3 MCHC 33.9 RDW Std Deviation 41.0 Plt Count 201 Neut % (Auto) 66 Lymph % (Auto) 21 [place] % (Auto) 10 Eos % (Auto) 1 Baso % (Auto) 1 Neut # (Auto) 5.8 Lymph # (Auto) 1.8 [place] # (Auto) 0.9 H Eos # (Auto) 0.1 Baso # (Auto) 0.0 Immature Gran # (Auto) 0.07 H Absolute Nucleated RBC 0.00 Immature Gran % 1 H Nucleated RBC % 0 Sodium 140 Potassium 3.3 L D Chloride 104 Carbon Dioxide 27.5 Anion Gap 9 BUN 10 Creatinine 0.7 Estim Creat Clear Calc 95.6 eGFR > 60 BUN/Creatinine Ratio 14 Glucose 83 Calculated Osmolality 277 Calcium 8.6 Corrected Calcium 8.9 Phosphorus 3.7 Magnesium 1.6 Total Bilirubin 1.1 D AST 136 H ALT 438 H Alkaline Phosphatase 116 Total Protein 6.6 Albumin 3.6 Globulin 3.0 Albumin/Globulin Ratio 1.2 Triglycerides 123 Cholesterol 145 LDL Cholesterol, Calc 92 HDL Cholesterol 28 L Cholesterol/HDL Ratio 5.2 Lipase 135 H D Quality Measures Quality Measures VTE prophylaxis Assessment & Plan Assessment Current Active Medications: Generic Name Dose Route Start Last Admin Trade Name Freq PRN Reason Stop Dose Admin Heparin Sodium (Porcine) 5,000 unit 04/20/25 21:00 04/21/25 07:17 Heparin Sod Inj 5000 Unit/Ml Vial SC 05/04/25 20:59 Not Given BID ADALBERTO Lactated Ringer's 1,000 mls @ 120 mls/hr 04/20/25 09:22 04/20/25 23:31 Lactated Ringers IV 05/20/25 09:21 120 mls/hr .Q8H20M ADALBERTO Administration Potassium Chloride 10 meq in 100 mls @ 100 mls/hr 04/21/25 07:54 04/21/25 08:42 Kcl Ivpb IV 04/21/25 10:53 100 mls/hr Q1H ADALBERTO Administration Magnesium Sulfate 2 gm in 50 mls @ 25 mls/hr 04/21/25 07:54 04/21/25 08:42 Magnesium Sulfate Ivpb IV 04/21/25 09:53 25 mls/hr X1 ONE Administration Morphine Sulfate 2 mg 04/20/25 09:12 04/20/25 15:45 Morphine Sulf Inj 4 Mg/Ml Vial IVP 04/25/25 09:11 2 mg Q2H PRN Administration PAIN SCALE 7-10 (Severe Morphine Sulfate 1 mg 04/20/25 09:32 Morphine Sulf Inj 4 Mg/Ml Vial IVP 04/25/25 09:31 Q4HR PRN pain 4-6 Ondansetron HCl 4 mg 04/20/25 09:12 Ondansetron Inj 2 Mg/Ml Inj 2 Ml IVP 05/20/25 09:11 Q6H PRN NAUSEA OR VOMITING Protocol Pantoprazole Sodium 40 mg 04/20/25 21:00 04/21/25 08:00 Pantoprazole Inj 40 Mg Vial IVP 05/20/25 20:59 40 mg BID ADALBERTO Administration Plan Patient is a 40 year old female with pmhx of cholelithiasis who presented to the ED at [facility] after having severe abdominal pain. Admitted for gallstone pancreatitis. #Gallstone pancreatitis #hx cholelithiasis #leukocytosis likely secondary to above #transaminitis likely secondary to above # Bilirubinemia likely secondary to possible obstruction Patient has hx of cholelithiasis, was seen 1 month ago for biliary colic WBC 11.8, T-Bili 2.1, AST 569, ALT 871, Alk phos 120, Lipase >3500; afebrile GB US showing cholelithiasis, negative for cholecystitis, CBD wnl CT AP showing acute pancreatitis, acute cholecystitis In ED, was given ceftriaxone 1 gm x1, dilaudid 1 mg iv x1, prochlorperazine 2.5 mg x1 Plan -LR IV fluids @120mls/hr -NPO -Surgery consulted, appreciate recs -plan for cholecystectomy when pancreatitis improves -IV morphine, tylenol prn pain -zofran prn -protonix IV BID #3.5 cm right ovarian cyst no pelvic pain or masses noted on exam -follow up outpatient with pcp Hospital Management: Disposition: med tele Diet: NPO GI Prophylaxis: protonix iv bid Bowel Prophylaxis: none DVT Prophylaxis: heparin CODE STATUS: full Patient plan of care was discussed with the attending physician, Dr. Jeff & senior resident Dr. Zen Thomas MD PGY-1 Attending Provider Attestation/Addendum I have discussed and was present for the essential components of the history, physical examination, diagnosis, and treatment plan with the resident. I agree with the patient's care as documented by the resident and amended herein by me. Per Jeff DO. Although this document has been carefully reviewed, there may still be some phonetic and other typographical errors. These errors are purely grammatical due to imperfections in the software program and should not be construed in any way to compromise the substance of the patient's medical care during this visit.
--- NOTE | 2025-04-21 09:45 | PC.NURSE ---
Report given to FIELD AUDITORNIEVES roe.
--- NOTE | 2025-04-21 11:00 | XR_ITS ---
Study: Operative cholangiography. INDICATION: Assess operative integrity. An AP supine portable radiograph of the abdomen following cholecystectomy shows contrast injected into the cystic duct remnant proceeding retrograde into the right hepatic lobe ducts and antegrade into the duodenum. There is no leak and no retained stone. IMPRESSION: Normal operative cholangiogram
--- NOTE | 2025-04-21 12:17 | PC.SS ---
Follow up note: On IV antibiotic.
--- NOTE | 2025-04-21 12:43 | ESOP_ITS ---
Date of Procedure 04/21/25 Pre Op Diagnosis Gallstone pancreatitis Post Op Diagnosis Cholelithiasis with cholecystitis Procedure Laparoscopic cholecystectomy with intraoperative cholangiogram Findings Moderately distended gallbladder with gallstones and chronic cholecystitis. Cholangiogram did not show any obvious CBD stones Procedure Description Patient was brought into the operating room in supine position. After administration of general endotracheal anesthesia abdomen was prepped and draped in standard surgical manner. A Veress needle was inserted through the umbilicus and pneumoperitoneum was obtained up to 15 mmHg. The Veress needle was then removed, a 5 mm infraumbilical incision was made and the 5mm trocar was inserted. Laparoscopic camera was placed. Under direct visualization a laparoscopic camera a 10 mm trocar was placed in subxiphoid and two 5 mm trocars placed in right upper quadrant. The gallbladder was identified and was noted to be moderately distended with multiple gallstones and chronic cholecystitis. It was retracted cephalad and laterally. Dissection started near the infundibulum of gallbladder where cystic duct and gallbladder junction clearly identified. The cystic duct was circumferentially dissected off the peritoneum and surrounding inflammatory tissue. The critical view of safety was clearly demonstrated. An Endo Clip placed near the cystic duct and gallbladder junction and a small ductotomy was performed. Cholangiogram catheter was placed through the ductotomy site and contrast was injected. Cholangiogram x-ray was obtained that revealed filling of contrast into the duodenum without obvious CBD stones. The cholangiogram catheter was removed and the cystic duct was divided between 2 endoclips proximally and one distally. The cystic artery was similarly divided. The gallbladder was then from the liver bed using electrocautery. The gallbladder was then placed inside an Endo Catch and removed from the abdomen utilizing subxiphoid trocar site. The area was copiously and thoroughly washed and irrigated, all the fluid was suctioned and the suction fluid returned clear. Hemostasis achieved using electrocautery. Endoclips noted be in place and intact without any bleeding or any leakage. Hemostasis was adequate and satisfactory. The subxiphoid trocar sites fascial defect was closed with 0 Vicryl using Endo Closure device. Instruments and trocars removed, pneumoperitoneum was evacuated and the incisions closed with 4- 0 Monocryl in subcuticular fashion. Instrument needle and sponge counts were all reported to be correct X2. Patient tolerated the procedure well, was extubated, breathing spontaneously and without difficulty and was transferred to postanesthesia care in stable condition. Anesthesia GETA and local Pathology / specimen Other (Gallbladder and contents) Estimated Blood Loss 10 Condition Stable Disposition PACU Surgeon Sam Garcia MD Surgical Staff Operation Date: 04/21/25 11:00 Case Staff Anesthesiologist: Kody Zafar RN First Assistant: Tiffani Kim
--- NOTE | 2025-04-21 12:50 | SUR.PHASEI ---
1250 patient arrived to recovery resting comfortably in [facility], sleeping and able to arouse with verbal prompting then drifts back to sleep, on oxygen 6L via oxy mask, breathing unlabored, vital signs stable, denies pain and nausea, dressing intact to abdomen; dermabond, no bleeding noted, report received from Bal PICKETT and Dr. Zafar
--- NOTE | 2025-04-21 13:25 | SUR.PHASEI ---
2187 Telephone order read-back received from pain from Dr. Zafar, Fentanyl 50mcg IVP Q10min PRN for pain scale 4-10, will place order in EMR and administer per anesthesia order
[2025-04-21] MEDS: fentaNYL CIT INJ 50 mCg/ML AMP 2ML IVP ×2 (13:30→13:43)
--- NOTE | 2025-04-21 14:31 | SUR.PHASEI ---
1431 patient transported via gurney to room 365 without incident, patients daughter awaiting at bedside, patient able to ambulate from [facility] to bed with stand-by assist from this investment underwriter, Melissa RN arrived to patient room and remained at bedside; patient resting comfortably in bed with call light in reach when this investment underwriter left patient room.
[2025-04-21] MEDS: POTASSIUM CHL 10 mEq IVPB 10 MEQ/100 ML BAG 75 MEQ IV (19:59)
[2025-04-21] MEDS: RINGERS LACTATED 1000 ML 1,000 ML 120 ML IV ×2 (19:59→23:27)
[2025-04-21] MEDS: DOCUSATE SOD 100 MG CAPSULE PO (20:00)
[2025-04-21] MEDS: HYDROcodone/APAP 5/325 TABLET 1 TAB PO (23:27)
[2025-04-22] VITALS: BP 124/80; PULSE 71; RESP 18; TEMP 37.2; O2SAT 97
[2025-04-22 04:00] VITALS: BP 100/68; PULSE 67; RESP 17; TEMP 36.1; O2SAT 97
[2025-04-22 06:25] LABS: Basophils # (Auto) 0.0 Thou/mm3 (0.0-0.2); Basophils % (Auto) 0 % (0-2.5); Eosinophils # (Auto) 0.0 Thou/mm3 (0.0-0.5); Eosinophils % (Auto) 0 % (0-10); Hematocrit 35.7 % (36.0-46.0); Hemoglobin 12.3 g/dL (12.0-16.0); Immature Granulocytes Auto 0.09 Thou/mm3 (0.00-0.00); Lymphocytes # (Auto) 1.7 Thou/mm3 (1.0-4.8); Lymphocytes % (Auto) 11 % (10-50); Mean Corpuscular HGB Conc 34.5 g/dl (31.0-37.0); Mean Corpuscular Hemoglobin 30.4 pg (25.0-35.0); Mean Corpuscular Volume 88 fL (80-100); Monocytes # (Auto) 1.1 Thou/mm3 (0.0-0.8); Monocytes % (Auto) 7 % (0-12); Neutrophils # (Auto) 12.0 Thou/mm3 (1.8-7.7); Neutrophils % (Auto) 81 % (37-80); Nucleated Red Blood Cell # 0.00 Thou/mm3 (0.00-0.00); Nucleated Red Blood Cell % 0 /100 WBC (0); Platelet Count 201 Thou/mm3 (140-440); RDW Standard Deviation 39.8 fL (36.4-46.3); Red Blood Count 4.04 Miln/mm3 (4.00-5.20); White Blood Count 14.9 Thou/mm3 (3.6-11.0)
[2025-04-22 06:43] LABS: Alanine Aminotransferase 319 U/L (10-49); Albumin, Serum 3.7 gm/dL (3.5-5.0); Albumin/Globulin Ratio 1.1 (1.2-2.2); Alkaline Phosphatase 100 U/L (46-116); Anion Gap 9 (7-16); Aspartate Amino Transferase 58 U/L (0-34); BUN/Creatinine Ratio 8 Ratio (12-20); Bilirubin,Total 0.7 mg/dL (0.3-1.2); Blood Urea Nitrogen < 5 mg/dL (9-23); Calcium 8.7 mg/dL (8.3-10.6); Calcium (Corrected) 8.9 mg/dL (8.5-10.1); Carbon Dioxide 26.2 mMol/L (20.0-31.0); Chloride 104 mMol/L (98-107); Creatinine (Component) 0.6 mg/dL (0.6-1.3); Estimated Creatinine Clearance 111.6 mL/min (>60); Globulin 3.3 gm/dL (2.3-3.5); Glucose 105 mg/dL (74-106); Magnesium 1.9 mg/dL (1.6-2.6); Osmolality,Calculated 274 (275-295); Phosphorous 3.1 mg/dL (2.4-5.1); Potassium 3.8 mMol/L (3.4-5.1); Sodium 139 mMol/L (136-145); Total Protein 7.0 gm/dL (5.7-8.2); eGFR > 60 See Note
[2025-04-22] MEDS: RINGERS LACTATED 1000 ML 1,000 ML 120 ML IV (08:05)
[2025-04-22 08:08] VITALS: BP 126/78; PULSE 61; RESP 15; TEMP 36.8; O2SAT 98
[2025-04-22] MEDS: HYDROcodone/APAP 5/325 TABLET 1 TAB PO (08:13)
[2025-04-22] MEDS: DOCUSATE SOD 100 MG CAPSULE PO (08:14)
[2025-04-22 08:30] VITALS: PULSE 92; RESP 18; RESP 99
[2025-04-22 12:30] VITALS: BP 120/85; PULSE 68; RESP 16; TEMP 36.6; O2SAT 99
--- NOTE | 2025-04-22 12:30 | PD.SURPROG ---
Documentation for date of: 04/22/25 Subjective Subjective Narrative: Patient is seen and examined. Her pain is improving and she is tolerating clear Exam Vital Signs Temp Pulse Resp BP Pulse Ox O2 Del Method O2 Flow Rate 98.3 F 92 18 126/78 98 Room Air 2 04/22/25 08:08 04/22/25 08:30 04/22/25 08:30 04/22/25 08:08 04/22/25 08:08 04/22/25 08:08 04/21/25 13:05 Constitutional Constitutional: no acute distress Routine Abdominal Exam Comments: Abdomen is soft and nondistended. Incisions are clean, dry and intact Assessment & Plan Assessment Additional comments: Postop day #1 status post laparoscopic cholecystectomy with cholangiogram Plan Advance to low-fat diet. Patient can be discharged after lunch PROCEDURES: Procedures Laparoscopic cholecystectomy with intraoperative cholangiogram
--- NOTE | 2025-04-22 14:28 | ESDS_ITS ---
<Statement entered by Ramila Gagnon DO - 04/22/25 19:52> I, Ramila Gagnon DO, attest that I was physically present for the brooks portions of the service and evaluated the patient with the resident and I reviewed and discussed the case with the resident and agree with the resident's findings and plans of care as documented above Planned Discharge Date 04/22/25 DS: Providers Provider Date of admission: 04/20/25 08:13 Primary care physician: Rober Mendoza MD Admitting Provider: Shola Jeff DO Attending Provider on Admission: Shola Jeff DO Consults: 04/20/25 08:15 Consult to General Surgery Routine Comment: Gallstone pancreatitis Consulting Provider: Sam Garcia Attending Provider on DC: Ramila Gagnon DO Discharging Provider: Ramila Gagnon DO DS: Diagnosis Problem List Completed Was Problem List Reviewed/Reconciled?: Yes Hospital Course Hospital Course Hospital course: Patient is a 40 year old polish speaking female with pmhx of cholelithiasis who presented to the ED at [facility] after having severe abdominal pain, admitted for gallstone pancreatitis. Patient states the pain started 04/18 at dinner after she was eating a meal consisting of fatty meat. States since then she has felt sharp, pricking like pain frequently in the epigastrium that radiates outwards laterally. Patient had leukocytosis with very elevated lipase levels, severe abdominal pain and imaging consistent with pancreatitis and cholelithiasis. The common bile duct diameter was normal on imaging with suspect passing of the stone, especially with elevated bilirubin levels. Patient was given a total of 4 liters IV fluids, fentanyl and norco for pain. Patient's pain improved greatly with pain medication. General surgeon Dr. Garcia performed cholecystectomy the day after admission. Patient is being sent home with norco for pain management. Patient is being discharged in stable condition. Discharge Instructions ? We are sending you with [facility] for pain, take as prescribed ? Continue taking all other home medications as prescribed ? Follow-up with PCP within 1-2 weeks of discharge ? If you do not have a PCP, you can follow-up at the [facility] (you can call [phone] to make an appointment) ? Return to ED if symptoms worsen or recur #Gallstone pancreatitis #hx cholelithiasis #leukocytosis #transaminitis #Bilirubinemia #3.5 cm right ovarian cyst Patient plan of care was discussed with the attending physician, Dr. Gagnon & senior resident Dr. Zen Thomas MD PGY-1 Time Spent with Patient Time attestation: Total time spent providing and/or coordinating discharge services: Time spent: Greater than 30 minutes Exam Vital Signs Temp Pulse Resp BP Pulse Ox O2 Del Method O2 Flow Rate 97.9 F 68 16 120/85 H 99 Room Air 2 04/22/25 12:30 04/22/25 12:30 04/22/25 12:30 04/22/25 12:30 04/22/25 12:04/22/25 12:04/21/25 13:05 Narrative Exam General: No acute distress; A&Ox3 Skin: Warm, dry, intact, no obvious rash. HENT: NCAT, EOMI/PERRL, not icteric. External ears normal. No rhinorrhea. Moist mucous membranes Cardiovascular: Regular rate and rhythm, no murmur, +S1/S2. Respiratory: Lungs CTAB GI: Soft, mild epigastric/RUQ tenderness and guarding, no distension. No rebound tenderness. : No suprapubic tenderness. No flank tenderness bilaterally. Extremities: no edema, no cyanosis, no clubbing. Extremity pulses present Neuro: Grossly nonfocal. Moving all 4 extremities. CN not formally tested but appear grossly intact. Psychiatric: Cooperative, appropriate affect. Discharge Plan Plan Patient Disposition: HOME (Self Care) Patient condition on transfer: Stable Care Plan Goals: ? We are sending you with [facility] for pain, take as prescribed ? Continue taking all other home medications as prescribed ? Follow-up with PCP within 1-2 weeks of discharge ? If you do not have a PCP, you can follow-up at the [facility] (you can call [phone] to make an appointment) ? Return to ED if symptoms worsen or recur Prescriptions/Referrals Prescriptions/Med Rec: New hydrocodone-acetaminophen 5-325 mg Tablet 1 tab PO Q6HR MDD 4 PRN (Reason: pain (scale score 7-10)) Qty: 10 0RF docusate sodium 100 mg Capsule 100 mg PO BID Qty: 20 0RF Continued ibuprofen 800 mg tablet 800 mg PO TID PRN (Reason: pain) Qty: 30 0RF ondansetron HCl 4 mg tablet 4 mg PO Q8H PRN (Reason: nausea and vomiting) Patient Comments: TAKE 1 TABLET BY MOUTH 3 TIMES A DAY Referrals: Rober Mendoza MD [Primary Care Provider, Family Practice] Patient/Caregiver Discharge Instructions Discharge Activity: activity as tolerated Education Materials: Preventing Surgical Site Infections Print Language: Mohawk Activity Restrictions/Additional Instructions: May shower in 24 hours. Avoid lifting, straining, pulling or pushing for 4 weeks. May take over the counter laxatives if no bowel movement in 2 days. Follow up with Dr. Garcia in 2 weeks, call [phone] for an appointment. Continue low-fat diet for a week then advance diet as tolerated. Stand Alone Forms: Mindy Award Info., Patient Portal Info Letter Discharge Order Discharge Orders: Discharge (Routine); Ordered 04/22/25 Ordered By: Ze Thomas Quality Discharge Quality Measures VTE prophylaxis
[2025-04-22 16:00] VITALS: BP 117/80; PULSE 73; RESP 16; TEMP 36.3; O2SAT 99
--- NOTE | 2025-04-24 09:41 | PC.SS ---
Late note 04-22-25: SS met with patient regarding her d/c plan. Pt is alert/oriented. Pt was admitted for Gallstone Pancreatitis. Pt confirmed demographic and contact information is correct on facesheet. Pt resides with and dtr. Pt ambulates independently without assistance or DME. Pt is ok with all ADLs. Patient?s pharmacy of choice is [facility]. Pt named her dtr, Karo Oliveira, phone# [phone] medical decision maker if she is unable. Patient?s choice is to return home upon d/c. Dtr will provide transportation home. D/C plan: Return home Next of Kin: Karo Oliveira, dtr, phone# [phone] PCP: Dr. Rober Mendoza from [facility] Address: Correct on facesheet
== END 2025-04-22 16:03 | disposition home or self-care (01) | DRG 263 ==
LOC: SERX 04-20 05:27 → SERHOLD 04-20 08:21 → S3NX 04-20 11:46
PROVIDERS: Nurse Practitioner Family; Surgery; Admitting Provider Student in an Organized Health Care Education/Training Program; Emergency Provider Emergency Medicine; PCP Family Medicine; Visit Provider Student in an Organized Health Care Education/Training Program
PROC: 0FT44ZZ Resection of Gallbladder, Percutaneous Endoscopic Approach (ICD-10-PCS; CPT 47562; principal; 2025-04-21 11:00)
DX: K85.10 Biliary acute pancreatitis without necrosis or infection (principal); K80.00 Calculus of gallbladder with acute cholecystitis without obstruction; N83.201 Unspecified ovarian cyst, right side; K80.12 Calculus of gallbladder with acute and chronic cholecystitis without obstruction; K82.8 Other specified diseases of gallbladder
CPT/HCPCS: 36415; 74177; 74300; 76705; 80053; 80061; 81001; 81025; 83690; 83735; 84100; 85025; 93225; 96365; 96375; 99284; A4217; A4649; J0131; J0694; J0696; J0780; J1171; J1644; J2250; J2270; J2470; J2704; J3010; J3475; J3480; J3490; J7120; Q9967; A9270